=== PATIENT | female | born 1995 | race Caucasian/White ===

== ENCOUNTER 2019-06-25 08:04 | Emergency (ER) | payer OTHER, SELFPAY ==
[2019-06-25 08:30] VITALS: BP 135/80; PULSE 126; RESP 16; TEMP 38.5; O2SAT 98
--- NOTE | 2019-06-25 08:43 | ED.GENADULT ---
HPI - General Adult General Chief complaint: Upper Respiratory Infection Stated complaint: sore throat Time Seen by Provider: 06/25/19 08:54 Source: patient Mode of arrival: ambulatory Limitations: no limitations History of Present Illness HPI narrative: 24-year-old female patient presents to the [facility] with complaints of sore throat that started yesterday. 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 Patient denies any fevers that he she is aware of. Patient denies any ear pain, runny nose, stuffy nose, coughing, chest pain, shortness of breath, abdominal pain, nausea, vomiting or diarrhea. Patient denies or breast-feeding at this time. Related Data Allergies Allergy/AdvReac Type Severity Reaction Status Date / Time No Known Allergies Allergy Unverified 05/04/19 09:24 Review of Systems Review of Systems: Narrative: CONSTITUTIONAL: Denies fever, chills, or sweats. EYES: Denies visual changes, redness, or discharge. ENT: Denies rhinorrhea, congestion, positive sore throat, denies otalgia. CARDIOVASCULAR: Denies chest pain, palpitations, or edema. RESPIRATORY: Denies cough or dyspnea. GASTROINTESTINAL: Denies abdominal pain, nausea, vomiting, or diarrhea. GENITOURINARY: Denies dysuria or hematuria. SKIN: Denies rash or itching. MUSCULOSKELETAL: Denies back pain, joint pain, or myalgia. NEUROLOGIC: Denies headache, numbness, or weakness. PSYCHIATRIC: Denies anxiety or depression. PMFSH Comments At the time of my signature I agree with nursing past medical history, surgical, social, and family history. There is no relevant family history pertinent to the presenting complaint. Exam Narrative: Exam Narrative: GENERAL: Well-appearing, well-nourished, and in no acute distress. HEAD: Normocephalic, atraumatic. EYES: PERRLA and EOMI. ENT: Nares clear, no rhinorrhea or epistaxis. Mucous membranes moist. Bilateral TMs are clear with no erythema or foreign bodies in the canal. Posterior pharynx with erythema, 3+ tonsil enlargement and exudates noted on bilateral sides of tonsils. NECK: Supple. Bilateral cervical lymphadenopathy and tenderness noted on palpation CHEST: Clear to auscultation. No respiratory distress. HEART: Regular rate and rhythm. No murmur heard. Normal peripheral pulses. ABDOMEN: Soft, nontender, nondistended, normal active bowel sounds. EXTREMITIES: Normal range of motion. No edema. SKIN: Warm, dry, no rash. NEURO: No focal deficits. Alert and oriented x3. Course Vital Signs Vital signs: Vital Signs Temperature 38.5 C H 06/25/19 08:30 Pulse Rate 126 H 06/25/19 08:30 Respiratory Rate 16 06/25/19 08:30 Blood Pressure 135/80 06/25/19 08:30 Pulse Oximetry 98 06/25/19 08:30 Temperature 38.5 C H 06/25/19 08:30 Pulse Rate 126 H 06/25/19 08:30 Respiratory Rate 16 06/25/19 08:30 Blood Pressure 135/80 06/25/19 08:30 Pulse Oximetry 98 06/25/19 08:30 Vital signs reviewed. The patient has been informed that they may have pre-hypertension or Hypertension based on a BP reading in the department. I recommend that the patient call the primary care provider listed on their discharge instructions or a physician of their choice this week to arrange follow up for further evaluation of possible pre-hypertension or Hypertension Medical Decision Making Differential Diagnosis Differential Diagnosis: Differential diagnosis: Viral pharyngitis, pharyngitis, group A strep, infectious mononucleosis, gonococcal pharyngitis, exudative pharyngitis, oral candidiasis. Chronic allergies, postnasal drip, GERD, abscess formation, but glottitis, retropharyngeal abscess formation, or airway obstruction. Allergic rhinitis, chronic sinusitis, tonsillitis, acute sinusitis, infectious mononucleosis, seasonal influenza, pertussis, diphtheria, meningococcal disease, viral syndrome, viral bronchitis, RSV. Notify patient that she is positive today for strep. Di
== END 2019-06-25 09:16 | disposition home or self-care (01) ==
PROVIDERS: Emergency Provider Nurse Practitioner Family
DX: J02.0 Streptococcal pharyngitis (principal)
CPT/HCPCS: 87880; 99213; G0463

== ENCOUNTER 2019-07-05 08:16 | Emergency (ER) | payer OTHER, SELFPAY ==
[2019-07-05 08:25] VITALS: BP 130/76; PULSE 108; RESP 16; TEMP 37.8; O2SAT 99
--- NOTE | 2019-07-05 08:38 | ED.URI ---
HPI - URI/Sore Throat General Chief Complaint: Upper Respiratory Infection Stated Complaint: sore throat/ear pain/chills Time Seen by Provider: 07/05/19 08:28 Source: patient and RN notes reviewed Mode of arrival: ambulatory Limitations: no limitations History of Present Illness HPI Narrative: Patient presents today complaining of sore throat, right ear pain, and chills. Yesterday, she finished a course of amoxicillin for strep throat, which she was seen at urgent care for 10 days ago. States her throat had resolved, but returned 2 days ago. She also reports right ear pain since yesterday. Denies any known fever. No cough, congestion, rhinorrhea. She currently rates her sore throat 2/10 and has been occasionally taking Tylenol with mild relief. MD elicited complaint: sore throat Related Data Allergies Allergy/AdvReac Type Severity Reaction Status Date / Time No Known Allergies Allergy Unverified 05/04/19 09:24 Review of Systems Review of Systems: Narrative: CONSTITUTIONAL: Denies body aches, fever, or sweats.+ Chills EYES: Denies visual changes, redness, or discharge. ENT: Denies rhinorrhea, congestion. + Sore throat, right ear pain CARDIOVASCULAR: Denies chest pain, palpitations, or edema. RESPIRATORY: Denies cough or dyspnea. GASTROINTESTINAL: Denies abdominal pain, nausea, vomiting, or diarrhea. GENITOURINARY: Denies dysuria or hematuria. SKIN: Denies rash, itching, or wounds. MUSCULOSKELETAL: Denies back pain, joint pain, or myalgia. NEUROLOGIC: Denies headache, numbness, tingling, or weakness. PSYCH: Denies depression or anxiety. PMFSH Comments At time of signature, I have reviewed and agree with nursing past medical, surgical, social and family history unless otherwise noted. Please see nursing chart for further information. There is no relevant family history pertinent to the presenting complaint Exam Narrative: Exam Narrative: GENERAL: Well-appearing, well-nourished, and in no acute distress. HEAD: Normocephalic, atraumatic. EYES: EOMI. No redness or drainage. Conjunctivae normal. ENT: Mucous membranes pink and moist. Nares clear. No rhinorrhea. TMs normal bilaterally. Throat mildly erythematous and edematous without exudate. Uvula midline. NECK: Normal AROM. Supple. No lymphadenopathy. CHEST: No respiratory distress. Clear to auscultation. HEART: Regular rhythm. + Tachycardia. No murmur appreciated. Normal peripheral pulses. ABDOMEN: Soft, nontender, nondistended, normal active bowel sounds. MUSCULOSKELETAL: No bony tenderness. EXTREMITIES: Normal range of motion. No edema. SKIN: Warm, dry, no rash. NEURO: No focal deficits. Alert and oriented x3. Gait steady. PSYCH: Normal affect. No signs of depression or anxiety. Course Vital Signs Vital signs: Vital Signs Temperature 100.0 F H 07/05/19 08:25 Pulse Rate 108 H 07/05/19 08:25 Respiratory Rate 16 07/05/19 08:25 Blood Pressure 130/76 07/05/19 08:25 Pulse Oximetry 99 07/05/19 08:25 Temperature 100.0 F H 07/05/19 08:25 Pulse Rate 108 H 07/05/19 08:25 Respiratory Rate 16 07/05/19 08:25 Blood Pressure 130/76 07/05/19 08:25 Pulse Oximetry 99 07/05/19 08:25 Reviewed. Pt has been instructed to follow up with her PCP regarding her elevated blood pressure today. MDM - URI/Sore Throat Differential Diagnosis Differential diagnosis: Likely upper respiratory infection, otitis media, pharyngitis and other (Strep throat) Medical Records Attestation: I reviewed the patient's medical records. Lab Data Attestation: I reviewed the patient's lab results. Labs: Strep Screen Presumptive Negative *(Reference Range: Negative)* Critical Care Time Critical Care Time Critical Care Time: No Discharge Plan Discharge Clinical Impression: Pharyngitis Qualifiers: Pharyngitis/tonsillitis etiology: unspecified etiology Qualified Code(s): J02.9 - Acute pharyngitis, unspecified Patient Disposition
[2019-07-05 08:59] VITALS: PULSE 98
== END 2019-07-05 08:48 | disposition home or self-care (01) ==
PROVIDERS: Emergency Provider Nurse Practitioner
DX: J02.9 Acute pharyngitis, unspecified (principal)
CPT/HCPCS: 87081; 87147; 87880; 99213; G0463

== ENCOUNTER 2019-07-06 08:49 | Emergency (ER) | payer OTHER, SELFPAY ==
[2019-07-06 09:00] VITALS: BP 147/94; PULSE 130; RESP 19; TEMP 36.1; O2SAT 98
--- NOTE | 2019-07-06 09:42 | ECG_ITS ---
Measurements Intervals [place] Rate: 114 P: 17 VT: 165 QRS: 52 QRSD: 98 T: -2 QT: 309 QTc: 426 Interpretive Statements SINUS TACHYCARDIA INCOMPLETE RIGHT BUNDLE BRANCH BLOCK NONSPECIFIC T-WAVE ABNORMALITY- INFERIOR LEADS ABNORMAL ECG Electronically Signed On 07-06-2019 10:35:04 CDT by Christopher Montes De Oca D.O.
--- NOTE | 2019-07-06 09:42 | ED.GENADULT ---
HPI - General Adult General Chief complaint: Upper Respiratory Infection Stated complaint: ST Time Seen by Provider: 07/06/19 09:18 History of Present Illness HPI narrative: This is a 24-year-old female who presents emergency department with a four-day history of sore throat and intermittent chest pain. Patient reports she has substernal chest pain that is tight in nature and worsens with eating or drinking. She denies cough, shortness of breath, lightheadedness, nausea or vomiting. Has had intermittent fevers last yesterday of 101 T-max. She has not taken any meds today and has been afebrile. She denies any exposure to sick contacts, travel. She works in a daycare. Related Data Home Medications Medication Instructions Recorded Confirmed No Home Medications 07/06/19 07/06/19 Allergies Allergy/AdvReac Type Severity Reaction Status Date / Time No Known Allergies Allergy Unverified 07/06/19 09:06 Review of Systems Review of Systems: Narrative: CONSTITUTIONAL: Reports fevers of 101, intermittent chills, fatigue. EYES: Denies visual changes, redness, or discharge. ENT: Denies rhinorrhea, congestion. Reports sore throat. CARDIOVASCULAR: Denies chest pain, palpitations, or edema. RESPIRATORY: Denies cough or dyspnea. GASTROINTESTINAL: Denies abdominal pain, nausea, vomiting, or diarrhea. Reports decreased p.o. intake due to pain with swallowing. GENITOURINARY: Denies dysuria or hematuria. Voiding per norm. SKIN: Denies rash or itching. MUSCULOSKELETAL: Denies back pain, joint pain, or myalgias. NEUROLOGIC: Denies headache, numbness, or weakness. PSYCHIATRIC: Denies anxiety or depression. [facility] Past Medical History Medical History (Updated 07/06/19 @ 13:12 by OBDULIA Stiles) Patient denies medical problems Surgical History Surgical History (Updated 07/06/19 @ 11:11 by OBDULIA Stiles) H/O tubal ligation History of endometrial ablation Previous section Family History Family History Father Hypertension Mother Hypertension Grandparent Diabetes mellitus Social History Social History (Updated 07/06/19 @ 11:12 by OBDULIA Stiles) Smoking status: Never smoker Occupation/Education: daycare Exam Narrative: Exam Narrative: GENERAL: Well-appearing, well-nourished, and in no acute distress. HEAD: Normocephalic, atraumatic. EYES: Sclera anicteric ENT: Nares clear, no rhinorrhea or epistaxis. Mucous membranes dry. Tonsillar pillars 3+ bilateral, no exudates, uvula midline, no palatal petechiae. NECK: Supple.bilat tonsillar LAD CHEST: Clear to auscultation. No respiratory distress. HEART: Regular rate and rhythm, tachycardic 124. No murmur heard. Normal peripheral pulses. ABDOMEN: Soft,obese, nontender, nondistended, normal active bowel sounds. EXTREMITIES: Normal range of motion. No edema. SKIN: Warm, dry, no rash. NEURO: No focal deficits. Alert and oriented x3. PSYCH: Normal mood and affect. Course Course Emergency Course: Pt reports she is feeling much better and ready to go home. Reports improvement in chest tightness and ST. Discussed lab findings and culture pending for strep pharyngitis. Vital Signs Vital signs: Vital Signs Temperature 36.1 C L 07/06/19 09:00 Pulse Rate 130 H 07/06/19 09:00 Respiratory Rate 19 07/06/19 09:00 Blood Pressure 147/94 H 07/06/19 09:00 Pulse Oximetry 98 07/06/19 09:00 Temperature 36.1 C L 07/06/19 09:00 Pulse Rate 110 H 07/06/19 11:26 Respiratory Rate 22 H 07/06/19 11:26 Blood Pressure 123/72 07/06/19 11:26 Pulse Oximetry 99 07/06/19 11:26 Medical Decision Making Vital Signs Vital Signs: Vital Signs Temperature 36.1 C L 07/06/19 09:00 Pulse Rate 130 H 07/06/19 09:00 Respiratory Rate 19 07/06/19 09:00 Blood Pressure 147/94 H 07/06/19 09:00 Pulse Oximetry 98 07/06/19 09:00 Temperature 36.1 C L 07/06/19 09:0
[2019-07-06 11:18] LABS: Basophils Percent Auto 0.3 % (0.2-1.2); Hematocrit 40.7 % (37.0-47.0); Hemoglobin 13.3 g/dL (12.0-15.0); Immature Granulocyte Absolute 0.05 K/mm3 (0.00-0.031); Immature Granulocyte Percent A 0.4 % (0-0.5); Lymphocytes Absolute Auto 1.57 K/mm3 (0.9-3.2); Lymphocytes Percent Auto 13.2 % (18.3-44.2); Mean Corpuscular HGB Conc 32.7 g/dl (32-36); Mean Corpuscular Hemoglobin 28.4 pg (26-34); Monocytes Absolute Auto 0.9 K/mm3 (0.1-0.6); Monocytes Percent Auto 7.8 % (2.6-8.5); Neutrophils Absolute Auto 9.3 K/mm3 (1.3-6.7); Neutrophils Percent Auto 78.3 % (45.5-73.1); Platelet Count Result 224 k/mm3 (150-375); Red Blood Count 4.68 M/mm3 (4.2-5.4); Red Cell Distribution Width 13.2 % (11.5-14.5); White Blood Count 11.9 K/mm3 (4.5-10.0)
[2019-07-06] MEDS: SODIUM CHLORIDE 0.9% IV 1,000 ML 999 ML IV CONT (11:20)
[2019-07-06] MEDS: KETOROLAC 30 MG/ML VIAL (*BKC) IV PUSH (11:21)
[2019-07-06 11:26] VITALS: BP 123/72; PULSE 110; RESP 22; O2SAT 99
[2019-07-06 11:44] LABS: Monoscreen Negative (Negative); Negative Monotest Control Negative (Negative); Positive Monotest Control Positive (Positive)
[2019-07-06 13:34] VITALS: BP 111/61; PULSE 100; RESP 17; O2SAT 97
== END 2019-07-06 13:37 | disposition home or self-care (01) ==
PROVIDERS: Nurse Practitioner; Emergency Provider Emergency Medicine
DX: J02.9 Acute pharyngitis, unspecified (principal); R00.0 Tachycardia, unspecified; I45.10 Unspecified right bundle-branch block; R94.31 Abnormal electrocardiogram [ECG] [EKG]
CPT/HCPCS: 36415; 85025; 86308; 87081; 87147; 87880; 93005; 96361; 96374; 96375; 99284; J1100; J1885; J7030

== ENCOUNTER 2019-07-09 08:09 | Emergency (ER) | payer OTHER, SELFPAY ==
[2019-07-09 08:31] VITALS: BP 151/102; PULSE 96; RESP 20; TEMP 36.2; O2SAT 100
[2019-07-09 08:37] VITALS: PULSE 90
--- NOTE | 2019-07-09 09:30 | ED.GENADULT ---
HPI - General Adult General Chief complaint: Chest Pain Stated complaint: chest pain, short of breath Time Seen by Provider: 07/09/19 09:05 Source: patient and family Mode of arrival: ambulatory Limitations: no limitations History of Present Illness HPI narrative: Patient is a 24-year-old female who presents to emergency department for evaluation of upper respiratory symptoms that began over the last week was contacted told she had positive strep was started on amoxicillin for this which she has been taking for the last couple of days patient also notes she has had increasing nausea and reflux-like symptoms with history of reflux is currently on omeprazole which she is taking [id number] patient denies fever vomiting diarrhea and on arrival is resting comfortably in the room in no distress does note some aching pain in the mid chest Related Data Home Medications Medication Instructions Recorded Confirmed penicillin V potassium 500 mg PO BID 07/09/19 Allergies Allergy/AdvReac Type Severity Reaction Status Date / Time No Known Allergies Allergy Verified 07/09/19 08:34 Review of Systems Review of Systems: All systems reviewed & are unremarkable except as noted in HPI and below PMFSH Past Medical History Medical History Patient denies medical problems Surgical History Surgical History H/O tubal ligation History of endometrial ablation Previous section Social History Social History Smoking status: Never smoker Gender identity (if verbalized by the patient): Female Exam Narrative: Exam Narrative: GENERAL: Well-appearing, obese, and in no acute distress. HEAD: Normocephalic, atraumatic. EYES: PERRLA and EOMI. ENT: Nares clear, no rhinorrhea or epistaxis. Mucous membranes moist. Oropharynx without tonsillar hypertrophy exudate or other lesions. CHEST: Clear to auscultation. No respiratory distress. No wheezes rales or rhonchi HEART: Regular rate and rhythm. No murmur heard. Normal peripheral pulses. ABDOMEN: Soft, mild epigastric tenderness, nondistended EXTREMITIES: Normal range of motion. No edema. SKIN: Warm, dry, no rash. NEURO: No focal deficits. Alert and oriented x3. PSYCH: Normal mood and affect. Course Course Emergency Course: Patient in the room in no distress aware of case findings treatment plan and diagnosis agreeing to follow-up as directed or to return if symptoms worsen or concerns Vital Signs Vital signs: Vital Signs Temperature 97.2 F L 07/09/19 08:31 Pulse Rate 96 07/09/19 08:31 Respiratory Rate 20 07/09/19 08:31 Blood Pressure 151/102 H 07/09/19 08:31 Pulse Oximetry 100 07/09/19 08:31 Temperature 97.2 F L 07/09/19 08:31 Pulse Rate 90 07/09/19 08:37 Respiratory Rate 20 07/09/19 08:31 Blood Pressure 151/102 H 07/09/19 08:31 Pulse Oximetry 100 07/09/19 08:31 Medical Decision Making MDM Narrative Medical decision making narrative: Patient in the room in no distress aware of case findings treatment plan and diagnosis agreeing to follow-up as directed or to return if symptoms worsen or concern Vital Signs Vital Signs: Vital Signs Temperature 97.2 F L 07/09/19 08:31 Pulse Rate 96 07/09/19 08:31 Respiratory Rate 20 07/09/19 08:31 Blood Pressure 151/102 H 07/09/19 08:31 Pulse Oximetry 100 07/09/19 08:31 Temperature 97.2 F L 07/09/19 08:31 Pulse Rate 90 07/09/19 08:37 Respiratory Rate 20 07/09/19 08:31 Blood Pressure 151/102 H 07/09/19 08:31 Pulse Oximetry 100 07/09/19 08:31 Discharge Plan Discharge Clinical Impression: Abdominal pain Patient Disposition: Home, Self-Care Condition: Stable Instructions: Antibiotic Form, Abdominal Pain (ED) Additional Instructions: Follow up with your primary care doctor tommorrow to
[2019-07-09] MEDS: FAMOTIDINE 20 MG TABLET PO (09:35)
[2019-07-09] MEDS: BELLADONNA ALK/PHENOB ELIX 10 ML, MAG HYDROX/ALUMINUM HYD/SIMETH 30 ML, LIDOCAINE HCL 2... PO (09:36)
--- NOTE | 2019-07-09 10:20 | ECG_ITS ---
Measurements Intervals [place] Rate: 94 P: 35 [place]: 151 QRS: 56 QRSD: 97 T: 22 QT: 345 QTc: 433 Interpretive Statements SINUS RHYTHM WITH SINUS ARRHYTHMIA INCOMPLETE RIGHT BUNDLE BRANCH BLOCK BORDERLINE ECG Electronically Signed On 07-09-2019 10:48:24 CDT by Christopher Montes De Oca D.O.
[2019-07-09 10:34] VITALS: BP 127/85; PULSE 84; RESP 16; O2SAT 99
== END 2019-07-09 10:35 | disposition home or self-care (01) ==
PROVIDERS: Emergency Provider Emergency Medicine
DX: R10.13 Epigastric pain (principal); K21.9 Gastro-esophageal reflux disease without esophagitis; I45.10 Unspecified right bundle-branch block
CPT/HCPCS: 93005; 99283; A9270

== ENCOUNTER 2020-03-25 19:42 | Emergency (ER) | payer OTHER, SELFPAY ==
--- NOTE | ~2020-03-25 | CT_ITS ---
EXAMINATION: CTA chest PE protocol DATE: 03/25/2020 21:16 INDICATION: Chest pain, tachycardia and shortness of breath. COVID positive. TECHNIQUE: Computed tomography (CT) pulmonary angiogram of the chest was performed with 100 mL Omnipa que-350 intravenous contrast. Additional 3D reconstructions utilizing coronal maximum intensity proje ction (MIP) were performed. Automated exposure control and iterative reconstruction technique were em ployed. The dose-length product was 1000.19 mGy-cm. COMPARISON: None FINDINGS: Excellent contrast opacification of the pulmonary arteries. There is mild streak artifact from dense contrast in the superior vena cava and right atrium. Mild scattered respiratory motion artifact which does not significantly limit evaluation. No pulmonary embolism. Lungs are clear with no airspace opa cities, pulmonary edema, pleural effusion or pneumothorax. Heart size is normal. No pericardial effus ion. Thoracic aorta is normal in caliber with no dissection. No pathologically enlarged thoracic lymp hadenopathy. Diffuse hepatic steatosis. Mild thoracic spondylosis. IMPRESSION: 1. No pulmonary embolism or other acute cardiopulmonary disease. Reviewed, dictated and finalized at location A. [employer]
[2020-03-25 19:53] VITALS: BP 149/95; PULSE 125; RESP 18; TEMP 36.6; O2SAT 100
--- NOTE | 2020-03-25 20:06 | ED.SOB ---
HPI - SOB/Dyspnea General Chief Complaint: Shortness of Breath/Dyspnea Stated Complaint: sob, Covid + Time Seen by Provider: 03/25/20 20:06 History of Present Illness HPI Narrative: Diagnosed with COVID-19 more than 2 weeks ago. She does not feel like she is getting any better. Over the past few days she has developed sharp chest pain and SOb That feels worse than before. No fever, chills, nausea, vomiting. Related Data Home Medications Medication Instructions Recorded Confirmed penicillin V potassium 500 mg PO BID 07/09/19 Allergies Allergy/AdvReac Type Severity Reaction Status Date / Time No Known Allergies Allergy Verified 07/09/19 08:34 Review of Systems Review of Systems: All systems reviewed & are unremarkable except as noted in HPI and below Constitutional: Constitutional: Denies chills and Denies fever(s) ENT: Denies sore throat Cardiovascular: Cardiovascular: Reports chest pain Respiratory: Respiratory: Reports chest congestion, Reports cough and Reports dyspnea Gastrointestinal: Gastrointestinal: Denies abdominal pain, Denies nausea and Denies vomiting Musculoskeletal: Musculoskeletal: Reports back pain Neurologic: Reports numbness and Denies weakness Psychiatric: Psychiatric: Denies anxiety PMFSH Past Medical History Medical History Patient denies medical problems Surgical History Surgical History H/O tubal ligation History of endometrial ablation Previous section Family History Family History Father Hypertension Mother Hypertension Grandparent Diabetes mellitus Social History Social History Smoking status: Never smoker Gender identity (if verbalized by the patient): Female Exam Const: General: healthy appearing, no acute distress and alert Nutritional Appearance: obese Orientation/consciousness: patient oriented x3 HENMT: Head: normal to inspection Neck: Neck: normal visual inspection and no lymphadenopathy Chest: Chest palpation & inspection: no tenderness Resp: Effort & Inspection: normal respiratory effort Auscultation: clear to auscultation bilaterally, no rales, no rhonchi and no wheezes Cardio: Jugular venous distension: no JVD Rate: tachycardic Rhythm: regular rhythm Heart sounds: no murmurs GI: Inspection: non-distended GI Palp: Yes Soft to palpation and No Tenderness to palpation present (GI) Skin: General skin exam: normal color Neuro: General: patient oriented x3 and moves all extremities Speech: normal speech Extrem: General: no edema Psych: Appearance: well kempt Affect: normal affect Course Vital Signs Vital signs: Vital Signs Temperature 36.6 C 03/25/20 19:53 Pulse Rate 125 H 03/25/20 19:53 Respiratory Rate 18 03/25/20 19:53 Blood Pressure 149/95 H 03/25/20 19:53 Pulse Oximetry 100 03/25/20 19:53 Temperature 36.6 C 03/25/20 19:53 Pulse Rate 89 03/25/20 23:06 Respiratory Rate 20 03/25/20 23:06 Blood Pressure 118/70 03/25/20 23:06 Pulse Oximetry 96 03/25/20 23:06 MDM - SOB/Dyspnea Differential Diagnosis Differential diagnosis: Likely community acquired pneumonia, pulmonary embolism and other (CAP) Medical Records Attestation: I reviewed the patient's medical records. Lab Data Attestation: I reviewed the patient's lab results. Result diagrams: 03/25/20 20:47 03/25/20 20:47 Labs: Lab Results 03/25/20 03/25/20 Range/Units 20:47 20:47 WBC 14.8 H (4.5-10.0) K/mm3 RBC 4.63 (4.2-5.4) M/mm3 Hgb 13.3 (12.0-15.0) g/dL Hct 40.0 (37.0-47.0) % MCV 86.4 (80-100) fl MCH 28.7 (26-34) pg MCHC 33.3 (32-36) g/dl RDW 13.1 (11.5-14.5) % Plt Count 290 (150-375) k/mm3 MPV 9.7 (7.4-10.4) fl Mignon
[2020-03-25 20:55] LABS: Basophils Absolute Auto 0.1 K/mm3 (0.0-0.1); Basophils Percent Auto 0.4 % (0.2-1.2); Eosinophils Absolute Auto 0.1 K/mm3 (0-0.3); Eosinophils Percent Auto 0.4 % (0-4.4); Hemoglobin 13.3 g/dL (12.0-15.0); Immature Granulocyte Absolute 0.15 K/mm3 (0.00-0.031); Lymphocytes Absolute Auto 2.65 K/mm3 (0.9-3.2); Lymphocytes Percent Auto 17.9 % (18.3-44.2); Mean Corpuscular HGB Conc 33.3 g/dl (32-36); Mean Corpuscular Hemoglobin 28.7 pg (26-34); Mean Corpuscular Volume 86.4 fl (80-100); Mean Platelet Volume 9.7 fl (7.4-10.4); Monocytes Absolute Auto 1.1 K/mm3 (0.1-0.6); Monocytes Percent Auto 7.7 % (2.6-8.5); Neutrophils Absolute Auto 10.7 K/mm3 (1.3-6.7); Neutrophils Percent Auto 72.6 % (45.5-73.1); Platelet Count Result 290 k/mm3 (150-375); Red Blood Count 4.63 M/mm3 (4.2-5.4); Red Cell Distribution Width 13.1 % (11.5-14.5); White Blood Count 14.8 K/mm3 (4.5-10.0)
[2020-03-25 21:06] LABS: Anion Gap 7 mmol/L (8-16); Blood Urea Nitrogen 16 mg/dL (7-17); Carbon Dioxide 28 mmol/L (22-30); Chloride 104 mmol/L (98-107); Estimated CRCL calculation 115 ml/min; Estimated Glomerular Filt Rate > 60; Glucose 103 mg/dL (65-105); Sodium 139 mmol/L (137-145)
[2020-03-25 21:26] VITALS: BP 120/70; PULSE 95; RESP 22; O2SAT 93
[2020-03-25] MEDS: KETOROLAC 30 MG/ML VIAL (*BKC) IV PUSH (22:00)
[2020-03-25 22:01] VITALS: BP 120/69; PULSE 92; RESP 20; O2SAT 95
[2020-03-25 23:06] VITALS: BP 118/70; PULSE 89; RESP 20; O2SAT 96
== END 2020-03-25 23:28 | disposition home or self-care (01) ==
PROVIDERS: Emergency Provider Emergency Medicine; PCP Family Medicine
DX: U07.1 COVID-19 (principal); R09.1 Pleurisy
CPT/HCPCS: 36415; 71275; 80048; 85025; 96374; 99284; J1885; Q9967

== ENCOUNTER 2022-08-28 08:19 | Emergency (ER) | payer OTHER, SELFPAY ==
--- NOTE | ~2022-08-28 | XR_ITS ---
Left Hand Technique: PA, oblique, and lateral views were obtained. Clinical History: Pain Findings: No acute fracture or dislocation is seen. Osseous alignment is anatomic. Joint spaces are p reserved. Soft tissues are unremarkable. Impression: Unremarkable left hand. Reviewed, dictated and finalized at location M. Impression: Unremarkable left hand.
--- NOTE | ~2022-08-28 | XR_ITS ---
Right Knee Technique: AP, lateral, and oblique views were obtained. Clinical History: Pain Findings: No fracture or dislocation is seen. Osseous alignment is anatomic. Joint spaces are preserv ed without degenerative or erosive change. Soft tissues are unremarkable. No joint effusion is seen. Impression: Unremarkable right knee radiographs. Reviewed, dictated and finalized at location . Impression: Unremarkable right knee radiographs.
--- NOTE | 2022-08-28 08:22 | ED.LOWEXIN ---
HPI - Extremity Injury (Lower) General Chief Complaint: Extremity Injury, Upper Stated Complaint: Injury in right knee and left hand; pain in both Time Seen by Provider: 08/28/22 08:22 Source: patient Mode of arrival: ambulatory Limitations: no limitations History of Present Illness HPI Narrative: Kaylyn is a 27-year-old female patient presenting to clinic today with complaints of left hand and right knee pain/injury. She reports she tripped yesterday and felt a pop in her right knee and she is having pain with bearing weight in his unable to bend her right knee after this injury. States that when she tripped her knee popped and she fell and landed on her left hand with most of her weight. Has bruising and swelling to the palmar aspect of the lower hand and thumb. Related Data Home Medications Medication Instructions Recorded Confirmed erenumab-aooe 70 mg/mL mg subcut 08/28/22 subcutaneous auto-injector (Aimovig Autoinjector) omeprazole 20 mg capsule,delayed mg 08/28/22 release sertraline 100 mg tablet mg 08/28/22 Allergies Allergy/AdvReac Type Severity Reaction Status Date / Time No Known Allergies Allergy Verified 08/28/22 08:31 Review of Systems Review of Systems: Pertinent positives per HPI. Patient denies any fever, chills, rash, headache, visual changes, dizziness, cough, runny nose, sore throat, shortness of breath, chest pain, palpitations, nausea, vomiting, diarrhea, constipation, abdominal pain, or any urinary issues. [facility] Past Medical History Medical History (Updated 08/28/22 @ 09:08 by Ish Newton APRN) Patient denies medical problems Surgical History Surgical History H/O tubal ligation History of endometrial ablation Previous section Family History Family History Father Hypertension Mother Hypertension Grandparent Diabetes mellitus Social History Social History Smoking status: Never smoker Occupation/Education: daycare Gender identity (if verbalized by the patient): Female Comments At the time of my signature, I reviewed and agree with the nursing past medical, surgical, social, and family history. There is no relevant family history pertinent to the patient complaint. Exam Narrative: General: Well-developed, obese, in no apparent distress Head: Normocephalic, atraumatic. Cardio: Regular rate and rhythm, s1 and s2 normal, no murmur appreciated. Resp: Clear to auscultation bilaterally, no rhonchi, rales, wheezing or rubs. Musculoskeletal: No deformity, bruising and swelling noted to the left palm/thumb, tender to palpation over the left thumb and base of the palm, tender to palpation of the anterior/medial right knee, pain with saddle joint range of mouth to the left thumb, pain with bending right knee at 45 degrees, muscle strength strong and equal, peripheral pulse strong, no cyanosis, sitting in a wheel chair. Course Course Emergency Course: Portions of this record may have been created with voice recognition software. Level of Care: Express Care Visit Vital Signs Vital signs: Vital Signs Temperature 36.6 C 08/28/22 08:30 Pulse Rate 88 08/28/22 08:30 Respiratory Rate 20 08/28/22 08:30 Blood Pressure 157/83 H 08/28/22 08:30 Pulse Oximetry 100 08/28/22 08:30 Oxygen Delivery Room Air 08/28/22 08:30 Temperature 36.6 C 08/28/22 08:34 Pulse Rate 88 08/28/22 08:34 Respiratory Rate 20 08/28/22 08:34 Blood Pressure 157/83 H 08/28/22 08:34 Pulse Oximetry 100 08/28/22 08:34 Oxygen Delivery Room Air 08/28/22 08:34 Vital signs reviewed MDM - Extremity Injury (Lower) MDM Narrative Medical decision making narrative: At the time of visit patient is resting comfortably on the exam table. X-rays of the rig
[2022-08-28 08:30] VITALS: BP 157/83; PULSE 88; RESP 20; TEMP 36.6; O2SAT 100
[2022-08-28 08:34] VITALS: BP 157/83; PULSE 88; RESP 20; TEMP 36.6; O2SAT 100
== END 2022-08-28 09:17 | disposition home or self-care (01) ==
PROVIDERS: Emergency Provider Nurse Practitioner Family; PCP Family Medicine
DX: S83.411A Sprain of medial collateral ligament of right knee, initial encounter (principal); S60.222A Contusion of left hand, initial encounter; W18.09XA Striking against other object with subsequent fall, initial encounter
CPT/HCPCS: 73130; 73564; 99214; G0463